=== PATIENT | female | born 1970 | race Caucasian/White ===

== ENCOUNTER 2017-11-28 07:40 | Day surgery (SDC) | payer BC ==
[2017-11-28] MEDS ORDERED: PROPOFOL 10 MG/ML VIAL IV ONE (07:41)
[2017-11-28] MEDS ORDERED: OXYCODONE/APAP 10MG-325MG TABLET PO ONE (07:41)
[2017-11-28] MEDS ORDERED: BUPIVACAINE 0.5% W/EPI MPF 30 ML VIAL IVP ONE (07:41)
[2017-11-28] MEDS ORDERED: MIDAZOLAM HCL 2MG/2ML VIAL IV ONE (07:41)
[2017-11-28] MEDS ORDERED: DEXAMETHASONE PRESERVATIVE FREE 10MG/ML VIAL IV ONE (07:41)
[2017-11-28] MEDS ORDERED: FENTANYL PF 100MCG/2ML VIAL IV ONE (07:41)
[2017-11-28] MEDS ORDERED: LIDOCAINE 1% W/EPI 1:200,000 MPF 30ML SQ ONE (07:41)
[2017-11-28] MEDS ORDERED: LIDOCAINE 2% MDV (20MG/ML) 20ML VIAL IV ONE (07:41)
--- NOTE | 2017-11-28 15:17 | Operative Note - [place] ---
DATE OF SURGERY: 11/28/17 PREOPERATIVE DIAGNOSIS: CERVICAL SPONDYLOSIS WITHOUT MYELOPATHY, ICD-10 CODE = M47.812. OPERATION: RADIOFREQUENCY RHIZOTOMY BILATERAL CERVICAL FACETS, 3-4, 4-5 , 5-6. SURGEON: RADHA JULIAN D.O. ANESTHESIA: LOCAL SEDATION. ANESTHESIA PROVIDER: SHANE JULIEN CRNA. INDICATION: This patient presents with primary neck pain. Examination shows tenderness lumbar spine. Range of motion does cause pain in the neck with extension. Diagnostics show multiple levels of spondylosis. A facet series 75% plus percent pain control. Due to the failure of therapies and success of the facet series, the patient presents for rhizotomy for more long-term relief. PROCEDURE: Intravenous line, vital sign monitoring, IV sedation, prepped, draped, sterile technique. Facet 3-4, 4-5, and 5-6 bilateral. Each one of these points on the skin infiltrated. A #22-gauge rhizotomy cannula positioned. Stimulation trials conducted. Rhizotomy burn performed. Local with anti- inflammatory into the sites. Topical antibiotics. Sterile dressing applied. We will monitor and evaluate. cc: Dr. Delatorre JOB NUMBER: [id number] MTDD
== END 2017-11-28 10:35 | disposition home or self-care (01) ==
LOC: SUR 07:40
PROVIDERS: ATTEND Pain Medicine Interventional Pain Medicine
DX: M47.812 Spondylosis without myelopathy or radiculopathy, cervical region (principal)
CPT/HCPCS: 64633; 64634 ×2; 01936; J1100